=== PATIENT | male | born 1940 | race Caucasian/White ===

== ENCOUNTER 2018-05-18 13:20 | Inpatient (IN) | payer OTHER | END 2018-05-20 17:50 | LOC: ER 13:20 → OVERFLOW 20:58 → CENTRAL 22:07 | DX: G45.9 Transient cerebral ischemic attack, unspecified (principal); I63.9 Cerebral infarction, unspecified; I10 Essential (primary) hypertension ==

== ENCOUNTER 2023-06-27 15:13 | Inpatient (IN) | payer OTHER ==
[~2023-06-27] VITALS: Ht 172.7 cm; Wt 71.4 kg
[~2023-06-27 15:13] MED LIST: AMLO5CAP2 PO; ASPI-543 PO; CLOP75TA28 PO
[2023-06-27 16:35] VITALS: PULSE 79; RESP 10; O2SAT 97
[2023-06-27 18:38] LABS: Basophils # (auto) 0 10 ^3/uL (0-0.2); Basophils % (auto) 0.3 % (0.0-2.0); Eosinophils # (auto) 0 10 ^3/uL (0-0.8); Hematocrit 46.9 % (41.0-53.0); Hemoglobin 15.1 g/dL (13.5-17.5); Lymphocytes # (auto) 1.1 10 ^3/uL (0.4-5.4); Lymphocytes % (auto) 8.4 % (10.0-50.0); Mean Corpuscular Hemoglobin 29.8 pg (28.0-32.0); Mean Corpuscular Hgb Conc. 32.2 g/dL (32.0-36.0); Mean Corpuscular Volume 92.6 fL (80.0-100.0); Monocytes % (auto) 7.2 % (0.0-12.0); Neutrophils # (auto) 11.3 10 ^3/uL (1.6-8.6); Neutrophils % (auto) 84.1 % (37.0-80.0); Nucleated Red Blood Cells % 0.5 %; Red Blood Cells 5.06 10^6/uL (4.5-5.90); Red Cell Distribution Width 13.5 % (11.8-14.3); White Blood Cell 13.5 10^3/uL (4.4-10.8)
[2023-06-27 18:51] LABS: Alanine Aminotransferase 15 U/L (7-40); Albumin 4.4 g/dL (3.2-4.8); Alkaline Phosphatase 80 U/L (46-116); Anion Gap 16 (5-15); Aspartate Aminotransferase 21 U/L (13-40); BUN/Creatinine Ratio 13.5 (10.0-20.0); Bilirubin, Total 0.5 mg/dL (0.2-1.0); Blood Urea Nitrogen 14 mg/dL (9-23); Calcium 9.4 mg/dL (8.5-10.1); Carbon Dioxide 19 mmol/L (20-30); Chloride 106 mmol/L (98-107); Glucose 191 mg/dL (74-106); Sodium 141 mmol/L (136-145); Total Protein 7.7 g/dL (5.7-8.2)
[2023-06-27 18:54] LABS: Partial Thromboplastin Time 23.7 SEC (24.5-34.5); Prothrombin Time 10.6 sec (9.3-11.8)
[2023-06-27] MEDS: IOHEXOL 350 MG/ML 100ML IJ ONE (20:55)
[2023-06-27 21:45] LABS: Urine Bacteria None Seen /hpf (None Seen)
[2023-06-27 21:53] LABS: Urine Blood Negative /uL (Negative); Urine Clarity Clear (Clear); Urine Color Light-Yellow (Yellow); Urine Protein, UAD TRACE (Negative); Urine Specific Gravity 1.017 (1.001-1.035); Urine Urobilinogen Normal (Negative); Urine WBC 104 /hpf (0 - 3); Urine pH 5.5 (5.0-9.0)
[2023-06-27] MEDS: POTASSIUM CHL 20MEQ/100ML 100 ML IV SCH (22:08)
[2023-06-27] MEDS ORDERED: ATORVASTATIN 20 MG TAB PO SCH (23:00)
[2023-06-27] MEDS ORDERED: ACETAMINOPHEN 325 MG TAB PO PRN (23:00)
[2023-06-27] MEDS ORDERED: ASPirin 81 mg TAB PO SCH (23:00)
[2023-06-27] MEDS ORDERED: ONDANSETRON HCL 4 MG/2 ML VIAL IV PRN (23:00)
[2023-06-28] MEDS: POTASSIUM CHL 20MEQ/100ML 100 ML IV SCH (01:02)
[2023-06-28 01:15] VITALS: PULSE 98; RESP 19; O2SAT 96
[2023-06-28] MEDS: ACETAMINOPHEN 325 MG TAB PO PRN (02:09)
[2023-06-28 03:22] LABS: Basophils # (auto) 0 10 ^3/uL (0-0.2); Basophils % (auto) 0.1 % (0.0-2.0); Eosinophils # (auto) 0 10 ^3/uL (0-0.8); Hematocrit 49.5 % (41.0-53.0); Hemoglobin 16.2 g/dL (13.5-17.5); Lymphocytes # (auto) 0.5 10 ^3/uL (0.4-5.4); Lymphocytes % (auto) 2.8 % (10.0-50.0); Mean Corpuscular Hemoglobin 30.3 pg (28.0-32.0); Mean Corpuscular Hgb Conc. 32.7 g/dL (32.0-36.0); Mean Corpuscular Volume 92.7 fL (80.0-100.0); Monocytes # (auto) 1.2 10 ^3/uL (0-1.3); Monocytes % (auto) 7.2 % (0.0-12.0); Neutrophils # (auto) 15.6 10 ^3/uL (1.6-8.6); Neutrophils % (auto) 89.9 % (37.0-80.0); Nucleated Red Blood Cells % 0.1 %; Red Blood Cells 5.34 10^6/uL (4.5-5.90); Red Cell Distribution Width 13.6 % (11.8-14.3); White Blood Cell 17.4 10^3/uL (4.4-10.8)
[2023-06-28 03:35] LABS: Chloride 109 mmol/L (98-107); Potassium 4.7 mmol/L (3.5-5.1); Sodium 139 mmol/L (136-145)
[2023-06-28 03:36] LABS: Anion Gap 14 (5-15); Carbon Dioxide 16 mmol/L (20-30)
[2023-06-28 03:37] LABS: Calcium 9.1 mg/dL (8.7-10.4)
[2023-06-28 03:42] LABS: BUN/Creatinine Ratio 11.9 (10.0-20.0); Blood Urea Nitrogen 14 mg/dL (9-23); Glucose 163 mg/dL (74-106)
[2023-06-28 03:59] LABS: Triglycerides 46 mg/dL (< 150)
[2023-06-28 04:00] LABS: LDL Cholesterol 113 mg/dL (< 100)
[2023-06-28 04:01] LABS: Cholesterol 174 mg/dL (< 200); HDL Cholesterol 54 mg/dL (40-59)
[2023-06-28 04:52] LABS: Base Excess -4.4 mmol/L (-2.0-2.0)
[2023-06-28 06:32] LABS: Lactic Acid w/Reflex 5.5 mmol/L (0.4-2.0)
[2023-06-28] MEDS ORDERED: VANCOMYCIN PER PHARMACY 0 MG IV SCH (07:00)
[2023-06-28] MEDS: SODIUM CHLORIDE 0.9% 1,000 ML IV ONE (07:29)
[2023-06-28 07:30] VITALS: PULSE 101; RESP 38; O2SAT 94
[2023-06-28] MEDS: VANCOMYCIN 1GM/200ML 200 ML IV ONE (08:49)
[2023-06-28] MEDS: cefTRIAXone 1GM/50ML D5W 50 ML IV SCH (09:08)
[2023-06-28] MEDS: PANTOPRAZOLE 40 MG/10 ML VIAL INJ IV SCH (10:39)
[2023-06-28] MEDS: ASPirin 81 mg TAB PO SCH (10:40)
[2023-06-28] MEDS: ENOXAPARIN SOD 40 MG/0.4 ML SYRINGE SC SCH (10:40)
[2023-06-28 11:03] LABS: Lactic Acid w/Reflex 3.6 mmol/L (0.4-2.0)
[2023-06-28 15:00] VITALS: BP 148/78; PULSE 75; RESP 14; TEMP 98.3
[2023-06-28 15:31] VITALS: BP 148/78; PULSE 75; RESP 14; TEMP 98.3; O2SAT 93
[2023-06-28 20:00] VITALS: PULSE 73
[2023-06-28 22:00] VITALS: BP 144/87; PULSE 92; RESP 21; TEMP 98.1; O2SAT 98
[2023-06-28] MEDS: ATORVASTATIN 20 MG TAB PO SCH (22:00)
[2023-06-29] VITALS (8 sets, daily range): BP systolic 91–170; BP diastolic 46–103; PULSE 49–82; RESP 16–20; TEMP 97.7–98.9; O2SAT 92–99
[2023-06-29 05:50] LABS: Basophils # (auto) 0.1 10 ^3/uL (0-0.2); Basophils % (auto) 0.3 % (0.0-2.0); Eosinophils # (auto) 0 10 ^3/uL (0-0.8); Hemoglobin 14.9 g/dL (13.5-17.5); Lymphocytes # (auto) 1.4 10 ^3/uL (0.4-5.4); Lymphocytes % (auto) 7.8 % (10.0-50.0); Mean Corpuscular Hemoglobin 30.9 pg (28.0-32.0); Mean Corpuscular Hgb Conc. 33.7 g/dL (32.0-36.0); Mean Corpuscular Volume 91.5 fL (80.0-100.0); Monocytes # (auto) 1.4 10 ^3/uL (0-1.3); Neutrophils # (auto) 14.8 10 ^3/uL (1.6-8.6); Neutrophils % (auto) 83.9 % (37.0-80.0); Red Blood Cells 4.81 10^6/uL (4.5-5.90); Red Cell Distribution Width 13.6 % (11.8-14.3); White Blood Cell 17.7 10^3/uL (4.4-10.8)
[2023-06-29] MEDS: VANCOMYCIN 1GM/200ML 200 ML IV SCH (06:06)
[2023-06-29 06:10] LABS: Chloride 115 mmol/L (98-107); Potassium 3.5 mmol/L (3.5-5.1); Sodium 145 mmol/L (136-145)
[2023-06-29 06:11] LABS: Anion Gap 11 (5-15); Carbon Dioxide 19 mmol/L (20-30)
[2023-06-29 06:12] LABS: Calcium 9.2 mg/dL (8.5-10.1)
[2023-06-29 06:16] LABS: Blood Urea Nitrogen 17 mg/dL (9-23); Glucose 104 mg/dL (74-106)
[2023-06-30] VITALS (59 sets, daily range): BP systolic 44–233; BP diastolic 24–99; PULSE 50–168; RESP 13–23; TEMP 96.3–99.3; O2SAT 92–99
[2023-06-30] MEDS ORDERED: ASPirin 300 MG RECTAL SUPP PR SCH (10:00)
[2023-06-30] MEDS: ROCURONIUM 10MG/ML 10ML VIAL IV ONE (10:12)
[2023-06-30] MEDS: ETOMIDATE (2MG/ML) 20ML VIAL IV ONE (10:12)
[2023-06-30] MEDS: MIDAZOLAM DRIP 50 mg/50mL 50 ML IV ONE (10:15)
[2023-06-30] MEDS: fentaNYL Drip 2500mCg/250mlNS 250 ML IV ONE (10:15)
[2023-06-30] MEDS: NOREPINEPHRINE 8 MG/250ML KIT 250 ML IV ONE (11:17)
[2023-06-30] MEDS: DOPamine 1600MCG/ML D5W 250 ML IV SCH (12:11)
[2023-06-30] MEDS: DOPamine 1600MCG/ML D5W 250 ML IV ONE (12:12)
[2023-06-30] MEDS: ASPirin 81 mg TAB PO ONE (14:00)
[2023-06-30] MEDS: NOREPINEPHRINE 8 MG/250ML KIT 250 ML IV SCH (14:15)
[2023-06-30 15:54] LABS: Basophils # (auto) 0.1 10 ^3/uL (0-0.2); Basophils % (auto) 0.3 % (0.0-2.0); Eosinophils # (auto) 0 10 ^3/uL (0-0.8); Eosinophils % (auto) 0.2 % (0.0-7.0); Hematocrit 46.9 % (41.0-53.0); Lymphocytes # (auto) 1.1 10 ^3/uL (0.4-5.4); Lymphocytes % (auto) 7.8 % (10.0-50.0); Mean Corpuscular Hemoglobin 29.7 pg (28.0-32.0); Mean Corpuscular Hgb Conc. 32.1 g/dL (32.0-36.0); Mean Corpuscular Volume 92.6 fL (80.0-100.0); Monocytes # (auto) 1.9 10 ^3/uL (0-1.3); Monocytes % (auto) 13.4 % (0.0-12.0); Neutrophils # (auto) 11.3 10 ^3/uL (1.6-8.6); Neutrophils % (auto) 78.3 % (37.0-80.0); Nucleated Red Blood Cells % 0.1 %; Red Blood Cells 5.06 10^6/uL (4.5-5.90); Red Cell Distribution Width 13.5 % (11.8-14.3); White Blood Cell 14.4 10^3/uL (4.4-10.8)
[2023-06-30 16:11] LABS: Chloride 115 mmol/L (98-107)
[2023-06-30 16:13] LABS: INR 1.03 (0.9-1.15); Prothrombin Time 10.9 sec (9.3-11.8)
[2023-06-30 16:15] LABS: Carbon Dioxide 22 mmol/L (20-30)
[2023-06-30 16:20] LABS: Glucose 127 mg/dL (74-106)
[2023-06-30 16:21] LABS: Alkaline Phosphatase 71 U/L (46-116)
[2023-06-30 16:22] LABS: Albumin 3.9 g/dL (3.2-4.8); Aspartate Aminotransferase 43 U/L (13-40)
[2023-06-30 16:23] LABS: Bilirubin, Total 0.7 mg/dL (0.2-1.0); Total Protein 6.8 g/dL (5.7-8.2)
[2023-06-30 16:27] LABS: Alanine Aminotransferase 21 U/L (7-40); BUN/Creatinine Ratio 20.3 (10.0-20.0); Blood Urea Nitrogen 24 mg/dL (9-23); Potassium 3.5 mmol/L (3.5-5.1)
[2023-06-30 16:28] LABS: Anion Gap 9 (5-15); Sodium 146 mmol/L (136-145)
[2023-06-30] MEDS: CEFEPIME 2GM/50ML NS 50 ML IV SCH (16:56)
[2023-06-30] MEDS: ASPirin 81 mg TAB PO SCH (17:24)
[2023-06-30 18:48] LABS: Base Excess -5.4 mmol/L (-2.0-2.0)
[2023-07-01] VITALS (103 sets, daily range): BP systolic 85–148; BP diastolic 56–88; PULSE 67–107; RESP 14–20; TEMP 98.2–99.5; O2SAT 53–99
[2023-07-01 03:43] LABS: Basophils # (auto) 0.1 10 ^3/uL (0-0.2); Basophils % (auto) 0.5 % (0.0-2.0); Eosinophils # (auto) 0.1 10 ^3/uL (0-0.8); Eosinophils % (auto) 0.5 % (0.0-7.0); Hematocrit 46.9 % (41.0-53.0); Hemoglobin 14.7 g/dL (13.5-17.5); Lymphocytes # (auto) 1.3 10 ^3/uL (0.4-5.4); Lymphocytes % (auto) 8.8 % (10.0-50.0); Mean Corpuscular Hemoglobin 30.4 pg (28.0-32.0); Mean Corpuscular Hgb Conc. 31.4 g/dL (32.0-36.0); Mean Corpuscular Volume 96.9 fL (80.0-100.0); Monocytes # (auto) 1.7 10 ^3/uL (0-1.3); Monocytes % (auto) 11.5 % (0.0-12.0); Neutrophils # (auto) 11.5 10 ^3/uL (1.6-8.6); Neutrophils % (auto) 78.7 % (37.0-80.0); Red Blood Cells 4.84 10^6/uL (4.5-5.90); Red Cell Distribution Width 14.3 % (11.8-14.3); White Blood Cell 14.6 10^3/uL (4.4-10.8)
[2023-07-01 03:44] LABS: Chloride 115 mmol/L (98-107); Sodium 142 mmol/L (136-145)
[2023-07-01 03:45] LABS: Anion Gap 10 (5-15); Carbon Dioxide 17 mmol/L (20-30)
[2023-07-01 03:46] LABS: Calcium 8.1 mg/dL (8.7-10.4)
[2023-07-01 03:50] LABS: Glucose 129 mg/dL (74-106)
[2023-07-01 03:51] LABS: BUN/Creatinine Ratio 18.2 (10.0-20.0); Blood Urea Nitrogen 25 mg/dL (9-23); Magnesium 2.3 mg/dL (1.6-2.6)
[2023-07-01 07:01] LABS: Base Excess -4.6 mmol/L (-2.0-2.0)
[2023-07-01] MEDS: VANCOMYCIN 1GM/200ML 200 ML IV SCH (08:22)
[2023-07-01] MEDS ORDERED: LIDOCAINE 1% (LOCAL ANESTH.) PF 5ml SDV ID ONE (15:15)
[2023-07-01] MEDS: SODIUM CHLOR 0.9% PF (SALINE LOCK) 10ML VIAL/SYR IV SCH (21:37)
[2023-07-02] VITALS (106 sets, daily range): BP systolic 79–150; BP diastolic 47–87; PULSE 65–91; RESP 17–19; TEMP 97.9–99.1; O2SAT 95–100
[2023-07-02 04:20] LABS: Basophils # (auto) 0 10 ^3/uL (0-0.2); Basophils % (auto) 0.4 % (0.0-2.0); Eosinophils # (auto) 0.1 10 ^3/uL (0-0.8); Eosinophils % (auto) 1.1 % (0.0-7.0); Hematocrit 42.8 % (41.0-53.0); Hemoglobin 14.3 g/dL (13.5-17.5); Lymphocytes # (auto) 1.2 10 ^3/uL (0.4-5.4); Mean Corpuscular Hemoglobin 31.3 pg (28.0-32.0); Mean Corpuscular Hgb Conc. 33.4 g/dL (32.0-36.0); Mean Corpuscular Volume 93.7 fL (80.0-100.0); Monocytes # (auto) 1.3 10 ^3/uL (0-1.3); Monocytes % (auto) 12.2 % (0.0-12.0); Neutrophils # (auto) 8.3 10 ^3/uL (1.6-8.6); Neutrophils % (auto) 75.3 % (37.0-80.0); Nucleated Red Blood Cells % 0.1 %; Red Blood Cells 4.57 10^6/uL (4.5-5.90); Red Cell Distribution Width 13.5 % (11.8-14.3); White Blood Cell 11.1 10^3/uL (4.4-10.8)
[2023-07-02 04:32] LABS: Chloride 117 mmol/L (98-107); Potassium 4.1 mmol/L (3.5-5.1)
[2023-07-02 04:33] LABS: Anion Gap 8 (5-15); Calcium 8.6 mg/dL (8.7-10.4); Carbon Dioxide 22 mmol/L (20-30)
[2023-07-02 04:38] LABS: Glucose 116 mg/dL (74-106)
[2023-07-02 04:52] LABS: Sodium 147 mmol/L (136-145)
[2023-07-02 04:56] LABS: BUN/Creatinine Ratio 29.8 (10.0-20.0); Blood Urea Nitrogen 31 mg/dL (9-23)
[2023-07-02] MEDS: VANCOMYCIN 1GM/200ML 200 ML IV ONE (09:28)
[2023-07-02] MEDS: CEFEPIME 2GM/50ML NS 50 ML IV SCH (11:05)
[2023-07-02] MEDS: VANCOMYCIN 1GM/200ML 200 ML IV SCH (18:11)
[2023-07-03] VITALS (75 sets, daily range): BP systolic 75–142; BP diastolic 47–73; PULSE 55–79; RESP 15–22; TEMP 97.9–98.8; O2SAT 95–98
[2023-07-03 07:04] LABS: Base Excess -2.3 mmol/L (-2.0-2.0)
[2023-07-03] MEDS ORDERED: LORazepam 2MG/ML-1ML VIAL IV PRN (18:00)
[2023-07-03] MEDS ORDERED: MORPHINE SULFATE INJ 2 MG/ml SYRG IV PRN (18:00)
== END 2023-07-03 18:20 | DRG 64 ==
LOC: EDBD 15:13 → ER 15:13 → TELE 23:21 → TELE-WESTW 06-28 14:58 → ICU WEST 06-30 10:17
PROVIDERS: ADMIT Nurse Practitioner Family; ATTEND Nurse Practitioner Family
PROC: 0B9D8ZX Drainage of Right Middle Lung Lobe, Via Natural or Artificial Opening Endoscopic, Diagnostic (ICD-10-PCS; principal; 2023-06-30)
PROC: 5A1945Z Respiratory Ventilation, 24-96 Consecutive Hours (ICD-10-PCS; 2023-06-30)
PROC: 0BH18EZ Insertion of Endotracheal Airway into Trachea, Via Natural or Artificial Opening Endoscopic (ICD-10-PCS; 2023-06-30)
PROC: 02HV33Z Insertion of Infusion Device into Superior Vena Cava, Percutaneous Approach (ICD-10-PCS; 2023-07-01)
PROC: B548ZZA Ultrasonography of Superior Vena Cava, Guidance (ICD-10-PCS; 2023-07-01)
DX: I63.543 Cerebral infarction due to unspecified occlusion or stenosis of bilateral cerebellar arteries (principal); A41.9 Sepsis, unspecified organism; G93.41 Metabolic encephalopathy; J96.01 Acute respiratory failure with hypoxia; G93.5 Compression of brain; J15.9 Unspecified bacterial pneumonia; J69.0 Pneumonitis due to inhalation of food and vomit; N39.0 Urinary tract infection, site not specified; J98.11 Atelectasis; E87.6 Hypokalemia; I10 Essential (primary) hypertension; E78.5 Hyperlipidemia, unspecified; Z66 Do not resuscitate; Z88.2 Allergy status to sulfonamides; Z80.3 Family history of malignant neoplasm of breast; Z79.02 Long term (current) use of antithrombotics/antiplatelets
CPT/HCPCS: 36415; 36569; 36600; 70450; 70496; 70551; 71045; 74176; 80048; 80053; 80061; 80202; 81001; 82565; 82805; 83036; 83605; 83735; 83880; 84484; 85025; 85610; 85730; 87040; 87070; 87077; 87081; 87086; 87186; 87205; 92610; 93005; 93306; 94002; 94003; 97110; 97163; 97530; 99291; C9113; G0378; J0692; J3480